=== PATIENT | male | born 2000 | race Two or more races ===

== ENCOUNTER 2023-08-28 04:35 | Emergency (ER) | payer OTHER ==
[~2023-08-28] VITALS: Ht 175.3 cm; Wt 72.0 kg
[2023-08-28 04:39] VITALS: TEMP 98
[2023-08-28] MEDS ORDERED: BUPIVACAINE HCL/PF 0.25% 10 ML VIAL IARTIC ONE (04:45)
[2023-08-28] MEDS ORDERED: LIDOCAINE 1% 10 ML VIAL IARTIC ONE (04:45)
[2023-08-28] MEDS ORDERED: HYDROmorphone HCL 2 MG/ML SYRINGE IM ONE (04:45)
[2023-08-28 05:34] VITALS: BP 157/84; PULSE 54; RESP 16
== END 2023-08-28 06:15 | disposition home or self-care (01) ==
LOC: EMS 04:37
DX: S03.00XA Dislocation of jaw, unspecified side, initial encounter (principal); X58.XXXA Exposure to other specified factors, initial encounter; Y93.89 Activity, other specified; Y92.89 Other specified places as the place of occurrence of the external cause; Y99.8 Other external cause status
CPT/HCPCS: 99284; 21480; J3490 ×2; J1170